=== PATIENT | male | born 1965 | race Caucasian/White ===

== ENCOUNTER → 2021-04-09 | Outpatient (CLI) | payer MEDICARE, OTHER ==
[~2021-04-09] VITALS: Ht 144.8 cm; Wt 45.4 kg
[~2021-04-09] MED LIST: BENTYL 20MG TAB20 MG PO; ZOFRAN ODT 4 MG4 MG PO
== END ==
LOC: OPSV 13:00
DX: M81.0 Age-related osteoporosis without current pathological fracture (principal)
CPT/HCPCS: 96372

== ENCOUNTER → 2021-10-31 | Outpatient (CLI) | payer MEDICARE, OTHER ==
[~2021-10-31] VITALS: Ht 144.8 cm; Wt 45.4 kg
[2021-10-31 11:49] LABS: HEMOGLOBIN 14.8 gm/dl (14.0-17.5); RED BLOOD COUNT 4.79 M/UL (4.20-5.50)
[2021-11-01 08:14] LABS: A/G RATIO 1.8 (1.2-2.2); ALKALINE PHOSPHATASE, S 71 IU/L (44-121); ALT (SGPT) 30 IU/L (0-44); AST (SGOT) 27 IU/L (0-40); BILIRUBIN, TOTAL 0.4 mg/dL (0.0-1.2); BUN 15 mg/dL (6-24); BUN/CREATININE RATIO 16 (9-20); CALCIUM, SERUM 8.7 mg/dL (8.7-10.2); CARBON DIOXIDE, TOTAL 19 mmol/L (20-29); CHLORIDE, SERUM 107 mmol/L (96-106); CHOLESTEROL, TOTAL 189 mg/dL (100-199); CREATININE, SERUM 0.93 mg/dL (0.76-1.27); EGFR IF AFRICN AM 105 (>59); EGFR IF NONAFRICN AM 91 (>59); GLOBULIN, TOTAL 2.5 g/dL (1.5-4.5); GLUCOSE, SERUM 87 mg/dL (65-99); HDL CHOLESTEROL 36 mg/dL (>39); LDL CHOLESTEROL CALC 139 mg/dL (0-99); LDL/HDL RATIO 3.9 ratio (0.0-3.6); MAGNESIUM 2.5 mg/dL (1.6-2.3); POTASSIUM, SERUM 4.6 mmol/L (3.5-5.2); SODIUM, SERUM 141 mmol/L (134-144); T. CHOL/HDL RATIO 5.3 ratio (0.0-5.0); TRIGLYCERIDES 74 mg/dL (0-149)
[2021-11-01 09:16] LABS: VITAMIN D, 25-HYDROXY 37.2 ng/mL (30.0-100.0)
== END ==
LOC: OPSV 10-17 12:00
PROVIDERS: Family Medicine
DX: K21.9 Gastro-esophageal reflux disease without esophagitis (principal); K52.9 Noninfective gastroenteritis and colitis, unspecified; E78.5 Hyperlipidemia, unspecified; E55.9 Vitamin D deficiency, unspecified; M81.0 Age-related osteoporosis without current pathological fracture; Z79.899 Other long term (current) drug therapy
CPT/HCPCS: 36415; 80053; 80061; 82607; 83735; 85027; 96372

== ENCOUNTER → 2022-03-20 | Outpatient (CLI) | payer MEDICARE, OTHER | LOC: EXRD 13:46 | DX: M81.0 Age-related osteoporosis without current pathological fracture (principal) | CPT/HCPCS: 77080 ==

== ENCOUNTER → 2022-05-02 | Outpatient (CLI) | payer MEDICARE, OTHER ==
[~2022-05-02] VITALS: Ht 144.8 cm; Wt 45.4 kg
[2022-05-02 12:07] LABS: RED BLOOD COUNT 4.9 M/UL (4.20-5.50); WHITE BLOOD COUNT 10.4 K/UL (4.5-11.0)
[2022-05-02 12:27] LABS: BUN/CREATININE RATIO 23 (0-10)
== END ==
LOC: OPSV 04-30 12:00
PROVIDERS: Family Medicine
DX: M81.0 Age-related osteoporosis without current pathological fracture (principal); K22.70 Barrett's esophagus without dysplasia; K21.9 Gastro-esophageal reflux disease without esophagitis
CPT/HCPCS: 36415; 80053; 80061; 82607; 83735; 85027; 96372